=== PATIENT | female | born 2005 | race African-American/Black ===

== ENCOUNTER 2024-07-21 12:11 | Emergency (ER) | payer OTHER ==
[2024-07-21] MEDS ORDERED: cefTRIAXone (ROCEPHIN) 250 MG VIAL ONE (13:13)
[2024-07-21] MEDS ORDERED: Doxycycline 100 MG CAP ONE (13:13)
[2024-07-22 15:03] LABS: Chlam.trachomatis by PCR,Urine DETECTED (NotDetected); GC N.gonorrhoeae PCR,UrineVOID DETECTED (NotDetected)
== END 2024-07-21 13:50 | disposition home or self-care (01) ==
LOC: NAV ERS 12:11
DX: Z20.2 Contact with and (suspected) exposure to infections with a predominantly sexual mode of transmission (principal); F17.290 Nicotine dependence, other tobacco product, uncomplicated
CPT/HCPCS: 87491; 87591; 96372; 99283; J0696